=== PATIENT | male | born 1985 | race Caucasian/White ===

== ENCOUNTER 2022-03-25 18:05 | Emergency (ER) | payer OTHER ==
[2022-03-25] MEDS ORDERED: Sodium Chloride 0.9% 10 ML Syringe FLUSH PRN ×2 (18:23)
[2022-03-25] MEDS ORDERED: Lidocaine 1% with EPINEPHrine 1:100,000 50 ML MDV SUBCUT STA (18:28)
[2022-03-25] MEDS ORDERED: Bacitracin Oint 1 GM U/D Packet TOP ONE (18:28)
[2022-03-25 18:44] LABS: ESTIMATED GFR 90 mL/min (>60)
[2022-03-25] MEDS ORDERED: Diphtheria,Pertussis(Acell),Tetanus Vaccine 0.5 ML Syringe IM ONE (18:55)
[2022-03-25] MEDS ORDERED: Ketorolac 30 MG/ML SDV IVPUSH ONE (19:28)
[2022-03-25] MEDS ORDERED: ceFAZolin 1 GM in Premix Bag 1 BAG IV ONE (20:39)
[2022-03-25] MEDS ORDERED: ceFAZolin 1 GM Vial ONE (20:56)
[2022-03-25] MEDS ORDERED: Sodium Chloride 0.9% 50 ML ONE (20:57)
[2022-03-25] MEDS ORDERED: ceFAZolin 1 GM in Premix Bag 1 BAG IV SCH (22:00)
== END 2022-03-25 22:40 | disposition home or self-care (01) ==
LOC: EDBD 18:05 → MERGE 18:05 → JP.ED 18:05
DX: S62.647A Nondisplaced fracture of proximal phalanx of left little finger, initial encounter for closed fracture (principal); S01.412A Laceration without foreign body of left cheek and temporomandibular area, initial encounter; S01.81XA Laceration without foreign body of other part of head, initial encounter; S61.412A Laceration without foreign body of left hand, initial encounter; Z23 Encounter for immunization; Z79.899 Other long term (current) drug therapy; V18.0XXA Pedal cycle driver injured in noncollision transport accident in nontraffic accident, initial encounter; Y92.410 Unspecified street and highway as the place of occurrence of the external cause
CPT/HCPCS: 12001; 12013; 36415; 70450; 70486; 73130; 80053; 85025; 90471; 90715; 96365; 96375; 99284; J0690; J1885; J3490